=== PATIENT | female | born 1960 | race Hispanic/Latino ===

== ENCOUNTER 2017-05-31 07:08 | Emergency (ER) | payer MEDICARE ==
[2017-05-31 07:09] VITALS: BMI 29.6
[2017-05-31 07:44] VITALS: BP 126/78; PULSE 84; RESP 16; TEMP 98.1; O2SAT 98
--- NOTE | 2017-05-31 08:54 | ED PDOC ---
Arrival/HPI - General Chief Complaint: ENT Problem Time Seen by Provider: 05/31/17 07:47 Historian: Patient - History of Present Illness Narrative History of Present Illness (Text): 05/31/17 08:24 A 56 year old female, whose past medical history includes hypertension, hyperlipidemia, and COPD, presents to the emergency department complaining of left ear pain and left throat pain for 1 week. Patient reports experiencing discharge and clogging sensation from left ear. Patient arrives for another complaint of s/p fall 2 weeks ago. Notes experiencing left-sided neck pain s/p fall, on top of chronic neck pain. Patient denies any fever, chills, cough, difficulty/pain when swallowing, nasal congestion, or any other complaints. No numbness or weakness. PMD: Dr. Rosario Time/Duration: 1 week (left ear pain and left throat pain), < week (2 weeks ago neck pain s/p fall) Past Medical History - Provider Review Nursing Documentation Reviewed: Yes - Infectious Disease Hx of Infectious Diseases: None - Tetanus Immunization Tetanus Immunization: Unknown - Cardiac Hx Cardiac Disorders: Yes Hx Hypertension: Yes Hx Pacemaker: No - Pulmonary Hx Respiratory Disorders: Yes Hx Asthma: Yes Hx Chronic Obstructive Pulmonary Disease (COPD): Yes - Neurological Hx Neurological Disorder: No Hx Paralysis: No - HEENT Hx HEENT Disorder: Yes Hx Cataracts: Yes (IMMATURE BILAT.) Hx Glaucoma: Yes ("BORDERLINE") - Renal Hx Renal Disorder: No - Endocrine/Metabolic Hx Endocrine Disorders: Yes Other/Comment: 3 CYSTS ON THYROID-BX. DONE X1-PT DOES NOT KNOW RESULT. - Hematological/Oncological Hx Blood Disorders: No Hx Blood Transfusions: No Hx Blood Transfusion Reaction: No - Integumentary Hx Dermatological Disorder: No - Musculoskeletal/Rheumatological Hx Musculoskeletal Disorders: Yes Hx Arthritis: Yes Hx Back Pain: Yes Hx Herniated Disk: Yes Hx Myasthenia Gravis: Yes - Gastrointestinal Hx Gastrointestinal Disorders: No - Genitourinary/Gynecological Hx Genitourinary Disorders: Yes Other/Comment: ABNORMAL UTERINE BLEEDING - Psychiatric Hx Psychophysiologic Disorder: Yes Hx Anxiety: Yes Hx Emotional Abuse: No Hx Physical Abuse: No Hx Substance Use: No - Surgical History Hx Breast Biopsy: Yes (cyst removed left breast) Other/Comment: cyst removal from thyroid - Anesthesia Hx Anesthesia Reactions: Yes (VOMITING) Hx Malignant Hyperthermia: No - Suicidal Assessment Feels Threatened In Home Enviroment: No Family/Social History - Physician Review Nursing Documentation Reviewed: Yes Family/Social History: No Known Family HX Smoking Status: Former Smoker Hx Alcohol Use: No Hx Substance Use: No Hx Substance Use Treatment: No Allergies/Home Meds Allergies/Adverse Reactions: Allergies Penicillins Allergy (Severe, Verified 04/19/16 08:53) RASH acetaminophen [From Percocet] Allergy (Verified 04/19/16 08:53) VOMITING cortisone Allergy (Verified 04/19/16 08:59) .bleeding oxycodone HCl [From Percocet] Allergy (Verified 04/19/16 08:53) VOMITING hazelnut Allergy (Severe, Uncoded 04/19/16 08:53) SHORTNESS OF BREATH Home Medications: Home Meds Medication Instructions Recorded Confirmed Albuterol Sulfate [Proair Hfa] 2 puff IH QID PRN 09/22/12 04/19/16 Fluticasone/Salmeterol [Advair 1 puff IH BID 09/22/12 04/19/16 Diskus 250/50] Tiotropium [place] Inhaler 18 mcg INH ONCE 09/22/12 04/19/16 [Spiriva Inhalation Handihaler Device] Celecoxib 200 mg PO DAILY 06/17/15 04/19/16 Cholecalciferol (Vitamin D3) 50,000 unit PO .TWICE PER WEEK 06/17/15 04/19/16 [Vitamin D] Cyanocobalamin (Vitamin B-12) 1,000 mcg IM Q30D 06/17/15 04/19/16 [Cyanocobalamin Injection] Fenofibric Acid (Choline) 135 mg PO HS 06/17/15 04/19/16 [Fenofibric Acid] Folic Acid 1 mg PO DAILY 06/17/15 04/19/16 Magnesium Oxide 400 mg PO BID 06/17/15 04/19/16 Omeprazole 20 mg PO DAILY 06/17/15 04/19/16 Rosuvastatin Calcium [Crestor] 20 mg PO HS 06/17/15 04/19/16 [id number] CD [Cardizem CD] 180 mg PO DAILY 01/24/16 04/19/16 Review of Systems - Physician Review All systems were reviewed & negative as marked: Yes - Review of Systems Constitutional: absent: Fevers, Night Sweats ENT: Other (left ear pain, discharge and clogging sensation to left ear. Left throat pain, no difficulty swallowing, no pain when swallowing.). absent: Sinus Congestion Respiratory: absent: Cough Musculoskeletal: Neck Pain (left-side neck pain on top of chronic neck pain) Physical Exam Vital Signs Reviewed: Yes Vital Signs Temp Pulse Resp BP Pulse Ox 05/31/17 07:38 98.1 F 84 16 126/78 98 Temperature: Afebrile Blood Pressure: Normal Pulse: Regular Respiratory Rate: Normal Appearance: Positive for: Well-Appearing Pain Distress: None Mental Status: Positive for: Alert and Oriented X 3 - Systems Exam Head: Present: Atraumatic, Normocephalic Ears: Present: Normal Canal (no swelling). No: NORMAL TM (left ear shows yellow color to TM; right ear normal), Erythema (left ear) Pharnyx: Present: Normal Neck: Present: Paraspinal Tenderness (left-side). No: MIDLINE TENDERNESS Respiratory/Chest: Present: Clear to Auscultation, Good Air Exchange. No: Respiratory Distress, Accessory Muscle Use Cardiovascular: Present: Regular Rate and Rhythm, Normal S1, S2. No: Murmurs Abdomen: No: Tenderness, Distention, Peritoneal Signs Back: No: Midline Tenderness Neurological: Present: GCS=15, CN II-XII Intact, Speech Normal Skin: Present: Warm. No: Rashes Psychiatric: Present: Alert, Oriented x 3, Normal Insight, Normal Concentration Medical Decision Making ED Course and Treatment: 05/31/17 08:29 Impression: 56 year old female with left ear pain, left throat pain, and neck pain. Physical exam shows left ear: yellow color to TM, no erythema, no swelling to canal; right ear normal; throat normal; neck left paraspinal tenderness, no midline tenderness; back no midline tenderness; head exam normal. Differential Diagnosis included but are not limited to: Left Otitis Media vs. Left Neck Strain. Plan: -- Zithromax -- Toradol -- Paitent will be discharge home with PMD f/u. 05/31/17 09:05 Xrays from 05/28/17 reviewed and copies given to patient. No acute fracture noted on Cervical and Thoracic Xrays. She is scheduled for a steroid injection for her chronic neck pain soon as per pt. - Medication Orders Current Medication Orders: Discontinued Medications Azithromycin (Zithromax) 500 mg PO STAT STA PRN Reason: Protocol Stop: 05/31/17 08:30 Last Admin: 05/31/17 08:39 Dose: 500 mg Ketorolac Tromethamine (Toradol) 60 mg IM STAT STA Stop: 05/31/17 08:23 Last Admin: 05/31/17 08:33 Dose: 60 mg MAR Pain Assessment Document 05/31/17 08:33 MS (Rec: 05/31/17 08:35 MS [id number]) Pain Reassessment Is this a pain reassessment? No Sleep Is patient sleeping during reassessment? No Presence of Pain Presence of Pain Yes Pain Scale Used Pain Scale Used Numeric Location Left, Right or Bilateral Left Upper or Lower Upper Pain Location Body Site Back Description Description Intermittent Intensity of Pain at present 8 Pain Behavior Moaning Grasping Site IM Administration Charges Document 05/31/17 08:33 MS (Rec: 05/31/17 08:35 MS [id number]) Injection Site MAR Injection Site Left Deltoid Charges for Administration # of IM Administrations 1 - Scribe Statement The provider has reviewed the documentation as recorded by the Chip Epstein Provider Scribe Attestation: All medical record entries made by the Lukeibmarcel were at my direction and personally dictated by me. I have reviewed the chart and agree that the record accurately reflects my personal performance of the history, physical exam, medical decision making, and the department course for this patient. I have also personally directed, reviewed, and agree with the discharge instructions and disposition. Disposition/Present on Arrival - Present on Arrival Any Indicators Present on Arrival: No History of DVT/PE: No History of Uncontrolled Diabetes: No Urinary Catheter: No History of Decub. Ulcer: No History Surgical Site Infection Following: None - Disposition Have Diagnosis and Disposition been Completed?: Yes Diagnosis: Otitis media, Neck pain Disposition: HOME/ ROUTINE Disposition Time: 08:40 Patient Plan: Discharge Patient Problems: Current Active Problems Problem Status Onset Otitis media Acute Neck pain Acute Condition: IMPROVED Discharge Instructions (ExitCare): Ear Infections (Otitis Media), Chronic Neck Pain (DC) Additional Instructions: Ms Tinsley, thank you for letting us take care of you today. Your provider was Dr. Alcala. You were treated for Otitis Media, Neck Pain. The emergency medical care you received today was directed at your acute symptoms. If you were prescribed any medication, please fill it and take as directed. It may take several days for your symptoms to resolve. Return to the Emergency Department if your symptoms worsen, do not improve, or if you have any other problems. Please contact your doctor or call one of the physicians/clinics you have been referred to that are listed on the Patient Visit Information form that is included in your discharge packet. Bring any paperwork you were given at discharge with you along with any medications you are taking to your follow up visit. Our treatment cannot replace ongoing medical care by a primary care provider (PCP) outside of the emergency department. Thank you for allowing the [facility] team to be part of your care today. If you had an X-Ray or CT scan: A Radiologist will review the ED reading if any change in treatment is needed we will contact you. If you had a blood, urine, or wound culture: It will take several days for the results, if any change in treatment is needed we will contact you. If you had an STI test: It will take 48 hours for the results. Please call after 1 week if you have not heard back. Prescriptions: Azithromycin 250 mg PO DAILY #4 tab Referrals: Elgin Rosario MD [Primary Care Provider] - Follow up with primary Forms: [employer] ([place]), WORK NOTE
== END 2017-05-31 08:47 | disposition home or self-care (01) ==
LOC: ED 07:08
DX: H66.92 Otitis media, unspecified, left ear (principal); M54.2 Cervicalgia; Z87.891 Personal history of nicotine dependence
CPT/HCPCS: 96372; 99282; J1885

== ENCOUNTER 2017-08-23 07:53 | Emergency (ER) | payer OTHER, MEDICARE ==
[2017-08-23 07:54] VITALS: BMI 29.6
[2017-08-23 08:14] VITALS: RESP 18; TEMP 98.1
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
[2017-08-23 11:20] VITALS: BP 140/72; PULSE 80; O2SAT 99
== END 2017-08-23 10:50 | disposition home or self-care (01) ==
LOC: ED 07:53
DX: M54.2 Cervicalgia (principal); V49.9XXA Car occupant (driver) (passenger) injured in unspecified traffic accident, initial encounter; Y92.410 Unspecified street and highway as the place of occurrence of the external cause

== ENCOUNTER 2018-04-03 08:38 | Outpatient (CLI) | payer MEDICARE | END 2018-04-03 08:39 | disposition home or self-care (01) | LOC: RAD 08:38 ==

== ENCOUNTER 2018-04-24 07:35 | Outpatient (CLI) | payer MEDICARE | END 2018-04-24 07:36 | disposition home or self-care (01) | LOC: RAD 07:35 ==

== ENCOUNTER 2018-05-24 09:03 | Outpatient (CLI) | payer MEDICARE | END 2018-05-24 09:04 | disposition home or self-care (01) | LOC: RAD 09:03 ==

== ENCOUNTER 2018-06-03 07:20 | Outpatient (CLI) | payer MEDICARE | END 2018-06-03 07:21 | disposition home or self-care (01) | LOC: CARDIO 07:20 ==

== ENCOUNTER 2018-07-08 11:48 | Outpatient (CLI) | payer MEDICARE | END 2018-07-08 11:49 | disposition home or self-care (01) | LOC: RAD 11:48 ==